=== PATIENT | female | born 1935 | race African-American/Black ===

== ENCOUNTER 2020-03-23 17:35 | Inpatient (IN) | payer MEDICARE, OTHER ==
[~2020-03-23] VITALS: Ht 165.1 cm; Wt 50.3 kg
--- NOTE | 2020-03-23 17:43 | NUR ---
pt ofe PANDEY from CUSTODIAL to ed bed 08 for noted fever and weakness x today. pt is hypoxic and febrile [employer]. hx esrd. last dialysis done yesterday per ems repord. gowned and placed on monitor. placed on O2@2l/min satting at low 90's. awaiting md cronin.
--- NOTE | 2020-03-23 18:20 | NUR ---
dr acharya at bedside for eval.
[2020-03-23] MEDS ORDERED: LISI40TA4 PO (18:27)
[2020-03-23] MEDS ORDERED: CLOP75TA15 PO (18:27)
[2020-03-23] MEDS ORDERED: ATOR20TA PO (18:27)
[2020-03-23] MEDS ORDERED: MELA3TAB41 PO (18:27)
[2020-03-23] MEDS ORDERED: SUCR1ORA15 PO (18:27)
[2020-03-23] MEDS ORDERED: CHOL400T11 PO (18:27)
[2020-03-23] MEDS ORDERED: HYDR-4077 PO (18:27)
[2020-03-23] MEDS ORDERED: ASPI-1169 PO (18:27)
[2020-03-23] MEDS ORDERED: ONDA4TAB11 PO (18:27)
[2020-03-23] MEDS ORDERED: AMLO10TA4 PO (18:27)
[2020-03-23] MEDS ORDERED: CALC667C6 PO (18:27)
[2020-03-23] MEDS ORDERED: FOLI0.8C PO (18:27)
[2020-03-23] MEDS ORDERED: VIT1TABL46 PO (18:27)
[2020-03-23] MEDS ORDERED: FAMO20TA80 PO (18:27)
[2020-03-23] MEDS ORDERED: MEMA5TAB42 PO (18:27)
[2020-03-23] MEDS ORDERED: LACT10SO43 PO (18:27)
[2020-03-23] MEDS ORDERED: DOCU-141 PO (18:27)
--- NOTE | 2020-03-23 18:27 | NUR ---
iv line started blood drawn and sent to lab.
[2020-03-23] MEDS ORDERED: KETOROLAC TROMETHAMINE INJ 30 MG/ML VIAL IV ONE (18:30)
[2020-03-23] MEDS ORDERED: ACETAMINOPHEN 650 MG/SUPP.RECT RC ONE ×2 (18:30→18:52)
[2020-03-23] MEDS ORDERED: KETOROLAC TROMETHAMINE 15 MG/ML VIAL ONE (18:52)
[2020-03-23 18:54] LABS: BILIRUBIN,URINE Negative (NEGATIVE); BLOOD, URINE Negative Ery/uL (NEGATIVE); COLOR,URINE YELLOW (YELLOW); LEUKOCYTE ESTERASE ,URINE Small (NEGATIVE); NITRITE, URINE Negative (NEGATIVE); PROTEIN,URINE 100 mg/dl (NEGATIVE); UGLUCOSE Negative (NEGATIVE); UROBILINOGEN,URINE 0.2 EU/dL (0.2)
--- NOTE | 2020-03-23 19:00 | NUR ---
covid swab done sent to lab
[2020-03-23 19:17] LABS: ALANINE AMINOTRANSFERASE 40 U/L (12-78); ALBUMIN 3.2 g/dL (3.4-5.0); ALKALINE PHOSPHATASE 57 U/L (46-116); ASPARTATE AMINOTRANSFERASE 61 U/L (15-37); B-TYPE NATRIURETIC PEPTIDE 19398 PG/ML (0-125); BILIRUBIN,TOTAL 0.4 mg/dL (0.2-1.0); CALCIUM, SERUM 9.9 mg/dL (8.5-10.1); CREATININE 6.4 mg/dL (0.6-1.3); GLUCOSE 115 mg/dL (74-106); TOTAL PROTEIN, SERUM 6.9 g/dL (6.4-8.2); UREA NITROGEN, BLOOD 39 mg/dL (7-18)
[2020-03-23 19:37] LABS: BASOPHILS % (AUTO) 0.4 % (0.0-2.0); HEMATOCRIT 28 % (33-45); HEMOGLOBIN 8.6 g/dL (11.5-14.8); LYMPHOCYTES # (AUTO) 0.3 /CMM (0.8-4.8); LYMPHOCYTES % (AUTO) 3.1 % (20.0-44.0); MEAN CORPUSCULAR HGB CONC 31 g/dl (31.0-36.0); MEAN CORPUSCULAR VOLUME 83 fL (82-100); MONOCYTES # (AUTO) 0.8 /CMM (0.1-1.30); MONOCYTES % (AUTO) 9.6 % (2.0-12.0); NEUTROPHILS # (AUTO) 7.2 /CMM (1.8-8.9); NEUTROPHILS % (AUTO) 86.9 % (43.0-81.0); PLATELET COUNT (AUTO) 112 /CMM (150-450); RED BLOOD CELL COUNT(AUTO) 3.38 MIL/uL (4.0-5.2); WHITE BLOOD COUNT (AUTO) 8.3 K/uL (4.3-11.0)
[2020-03-23 19:40] LABS: BACTERIA,URINE Few /HPF (None Seen); SQUAMOUS EPITHELIAL CELL,UR Few /HPF (None Seen)
[2020-03-23] MEDS ORDERED: VANCOMYCIN 1 GM VIAL ONE (19:56)
[2020-03-23] MEDS ORDERED: CEFEPIME 1 GM VIAL ONE (19:56)
[2020-03-23] MEDS ORDERED: CEFEPIME 1 GM in IV D5W 50 ML IV ONE (20:00)
[2020-03-23] MEDS ORDERED: VANCOMYCIN 1 GM in IV D5W 250 ML IV ONE (20:00)
--- NOTE | 2020-03-23 20:10 | NUR ---
COVID SWAB AND INFLUENZA SWAB COLLECTED AND SENT TO THE LAB.
[2020-03-23 20:19] LABS: CARBON DIOXIDE 29 mmol/L (21-32); CHLORIDE 101 mmol/L (98-107); POTASSIUM 3.6 mmol/L (3.5-5.1); SODIUM SERUM 140 mmol/L (136-145)
[2020-03-23 20:25] LABS: D-DIMER 4.55 mg/L(FEU (0.17-0.50)
[2020-03-23 20:45] LABS: CREATINE KINASE, TOTAL 635 U/L (26-192); FERRITIN 2864 ng/mL (8-388)
[2020-03-23 20:51] LABS: C-REACTIVE PROTEIN 11.2 mg/dL (0.0-0.9)
[2020-03-23] MEDS ORDERED: ACETAMINOPHEN 325 MG TABLET PO PRN (21:00)
[2020-03-23] MEDS ORDERED: ONDANSETRON HCL/PF 4 MG/2 ML VIAL IVP PRN (21:00)
[2020-03-23] MEDS ORDERED: ACETAMINOPHEN 650 MG/SUPP.RECT RC PRN (21:00)
--- NOTE | 2020-03-23 21:09 | NUR ---
ER SPOKE TO ANALI BLAS [facility] REGARDING PT ADMISSION.
--- NOTE | 2020-03-23 21:16 | NUR ---
LAB CALLED REGARDING NEGATIVE COVID RESULT.
--- NOTE | 2020-03-23 21:33 | NUR ---
TELE 208-2
[2020-03-23] MEDS ORDERED: Medication Not On Formulary EA (Melatonin 6 MG) PO SCH (22:00)
--- NOTE | 2020-03-23 22:05 | NUR ---
report given to hermila zelaya for justine.
[2020-03-23 22:10] VITALS: BP 148/68
--- NOTE | 2020-03-23 22:17 | NUR ---
PATIENT TAKEN UP TO ASSIGNED ROOM FOR HAMILTON.
[2020-03-23] MEDS ORDERED: ALBUTEROL FS 2.5 MG/3 ML VIAL.NEB NEB PRN (23:00)
--- NOTE | 2020-03-23 23:25 | NUR ---
MS2/RN RECEIVED PATIENT FROM [facility] AT AROUND 2210 BY MIRNA. PATIENT WAS AWAKE, PASSIVE AFFECT, NO SIGNS OF DISTRESS NOTED, PATIENT DOES NOT ANSWER TO QUESTIONS HENCE UNABLE TO OBTAIN ADMISSION INFORMATIONS. CALLED THE INSPECTOR METAL CAN IN THE CHART [phone], SPOKE TO TAMMI, WHO INTRODUCED HERSELF THE PROPELLANT ASSEMBLER OF FACILITY, [facility], WHICH SHE CONFIRMED THAT THE PATIENT LIVES THERE. PER TAMMI, THE PATIENT HAS ADVANCE DIRECTIVE, THE PATIENT IS DNR, SHE WILL FAX THE ADVANCE DIRECTIVE TOMORROW; TAMMI WAS NOT SURE IF THE HOME HEALTH RN GAVE FLU VACCINE ALREADY, SHE REQUESTED NOT TO GIVE FLU VACCINE TO THE PATIENT WELL THE PNA VACCINE. OBTAINED SOME RELEVANT ADMISSION INFORMATIONS WELL. WILL MONITOR PATIENT'S TEMP AND SAFETY.
[2020-03-24] VITALS: BP 148/68
[2020-03-24] MEDS: SUCRALFATE 1 G/10 ML UDC PO SCH ×6 (00:06→21:13)
--- NOTE | 2020-03-24 00:17 | NUR ---
MS2/RN TEMP 101.7, TYLENOL SUPP WAS GIVEN ORDERED, COOLING MEASURES STARTED, WILL MONITOR.
--- NOTE | 2020-03-24 03:21 | NUR ---
MS2/RN AT 0100, TEMP 102, SPONGE BATH WITH DONE. RECHECKED TEMP, 101. WILL CONTINUE WITH COOLING MEASURES. WILL CONTINUE TO MONITOR.
[2020-03-24 04:00] VITALS: BP 149/71
--- NOTE | 2020-03-24 06:21 | NUR ---
MS2/RN TEMP AT 0500 98.0, INTERVENTION EFFECTIVE. PATIENT IS STILL SLEEPING AT THIS TIME, APPEAR COMFORTABLE, NO SIGNS OF DISTRESS NOTED, CALL LIGHT IN REACH. ALL NEEDS ATTENDED AT THIS TIME, WILL CONTINUE TO MONITOR.
[2020-03-24 06:38] LABS: BASOPHILS # (AUTO) 0.1 /CMM (0.0-0.2); BASOPHILS % (AUTO) 0.6 % (0.0-2.0); EOSINOPHILS % (AUTO) 0.3 % (0.0-6.0); HEMATOCRIT 28 % (33-45); HEMOGLOBIN 8.7 g/dL (11.5-14.8); LYMPHOCYTES # (AUTO) 0.6 /CMM (0.8-4.8); LYMPHOCYTES % (AUTO) 5.3 % (20.0-44.0); MEAN CORPUSCULAR HGB CONC 31 g/dl (31.0-36.0); MEAN CORPUSCULAR VOLUME 82 fL (82-100); MONOCYTES # (AUTO) 1.6 /CMM (0.1-1.30); MONOCYTES % (AUTO) 13.7 % (2.0-12.0); NEUTROPHILS # (AUTO) 9.4 /CMM (1.8-8.9); NEUTROPHILS % (AUTO) 80.1 % (43.0-81.0); PLATELET COUNT (AUTO) 102 /CMM (150-450); RED BLOOD CELL COUNT(AUTO) 3.45 MIL/uL (4.0-5.2); WHITE BLOOD COUNT (AUTO) 11.8 K/uL (4.3-11.0)
[2020-03-24 07:04] LABS: ALANINE AMINOTRANSFERASE 44 U/L (12-78); ALBUMIN 2.7 g/dL (3.4-5.0); ALKALINE PHOSPHATASE 60 U/L (46-116); ASPARTATE AMINOTRANSFERASE 55 U/L (15-37); BILIRUBIN,TOTAL 0.4 mg/dL (0.2-1.0); CALCIUM, SERUM 9.5 mg/dL (8.5-10.1); CARBON DIOXIDE 27 mmol/L (21-32); CHLORIDE 102 mmol/L (98-107); CREATININE 6.7 mg/dL (0.6-1.3); GLUCOSE 115 mg/dL (74-106); POTASSIUM 3.8 mmol/L (3.5-5.1); SODIUM SERUM 138 mmol/L (136-145); TOTAL PROTEIN, SERUM 6.2 g/dL (6.4-8.2); UREA NITROGEN, BLOOD 44 mg/dL (7-18)
[2020-03-24 07:52] LABS: FERRITIN 3596 ng/mL (8-388)
[2020-03-24 08:00] VITALS: BP 134/69
[2020-03-24] MEDS ORDERED: VANCOMYCIN 500 MG in IV D5W 100 ML IV PRN (08:00)
--- NOTE | 2020-03-24 08:01 | NUR ---
ALARM ADJUSTER OPEN NOTES PATIENT CURRENTLY SLEEPING IN BED WITH NO SIGNS OF DISTRESS ON 2L ON NASAL CANNULA. CURRENTLY NO SIGNS OF PAIN. TELE MONITOR SR. IV L AC# 20G, HD R ARM FISTULA. SAFETY MEASURES ARE APPLIED. BED IS IN LOWEST LOCKED POSITION WITH SIDE RAILS UP X 2 FOR SAFETY. CALL LIGHT IS WITHIN REACH. WILL CONTINUE TO MONITOR.
[2020-03-24] MEDS: ASPIRIN 81 MG TAB.CHEW PO SCH (08:40)
[2020-03-24] MEDS: DOCUSATE SODIUM 100 MG CAPSULE PO SCH ×2 (08:40→17:38)
[2020-03-24] MEDS: CHOLECALCIFEROL (VITAMIN D 3) 400 UNIT TABLET PO SCH (08:40)
[2020-03-24] MEDS: CALCIUM ACETATE 667 MG TABLET PO SCH ×3 (08:40→17:39)
[2020-03-24] MEDS: FAMOTIDINE (20 MG) 20 MG TABLET PO SCH (08:40)
[2020-03-24] MEDS: FOLIC ACID 1 MG TABLET PO SCH (08:40)
[2020-03-24] MEDS: VIT B CMPLX 3/FA/VIT C/BIOTIN 1 TAB TABLET PO SCH (08:40)
[2020-03-24] MEDS: LACTULOSE 10 G/15 ML UDC (PYXIS) PO SCH ×2 (08:40→17:39)
[2020-03-24] MEDS: MEMANTINE HCL 5 MG TABLET PO SCH (08:41)
[2020-03-24] MEDS: CLOPIDOGREL BISULFATE 75 MG TABLET PO SCH (08:41)
[2020-03-24] MEDS: LISINOPRIL (20MG) 20 MG TABLET PO SCH ×2 (09:00→21:13)
[2020-03-24] MEDS: hydrALAZINE HCL 50 MG TABLET PO SCH ×3 (09:00→17:39)
[2020-03-24] MEDS: AMLODIPINE BESYLATE 10 MG TABLET PO SCH (09:00)
--- NOTE | 2020-03-24 09:00 | NUR ---
HELD BP MEDS D/T HEMODIALYSES TODAY BP 134/69 HR 68. WILL CONTINUE TO MONITOR.
[2020-03-24 12:00] VITALS: BP 159/70
--- NOTE | 2020-03-24 13:00 | NUR ---
HELD BP MED D/T HEMODIALYSES BP 128/58 HR 69. WILL CONTINUE TO MONITOR.
--- NOTE | 2020-03-24 15:00 | NUR ---
PATIENT PCR NEGATIVE. GAVE REPORT TO NEDA CHOI FROM [facility] FOR CONTINUATION OF CARE
--- NOTE | 2020-03-24 15:10 | NUR ---
TRANSFERRED PATIENT TO [facility] NEDA CHOI RECEIVED PATIENT.
--- NOTE | 2020-03-24 15:20 | NUR ---
RN NOTES RECEIVED PT FROM MS2. A/O X1. SR ON TELE MONITOR. ON O2 2L VIA NC SATURATING @98%. NO SOB OR ANY RESPIRATORY DISTRESS NOTED AT THIS TIME. R ARM FISTULA, NO BP ON RIGHT ARM. L AC #20 INTACT, PATENT AND FLUSHED. VS TEMP: 98.6, HR: 65, RR: 18, BP: 144/62. SAFETY MEASURES IMPLEMENTED. CALL LIGHT WITHIN REACH. BED LOCKED AND AT LOWEST POSITION WITH SIDE RAILS UP X3. BED ALARM ON. NO PAIN REPORTED AT THIS TIME. WILL CONTINUE TO MONITOR
--- NOTE | 2020-03-24 17:30 | NUR ---
RN NOTES BEDSIDE SWALLOW EVAL DONE. PT DOES NOT FOLLOW COMMAND. PT NOT ABLE TO SWALLOW COMPLETELY. POCKETS FOODS ON THE SIDE OF THE MOUTH. HIGH RISK FOR ASPIRATION. MD AWARE. ORDERED SWALLOW EVAL. WILL CONTINUE TO MONITOR
--- NOTE | 2020-03-24 18:54 | NUR ---
RN CLOSING NOTES PT RESTING IN BED. A/O X1. VERBALLY RESPONSIVE. SR ON TELE MONITOR. ON O2 2L VIA NC SATURATING @98%. NO SOB OR ANY RESPIRATORY DISTRESS NOTED AT THIS TIME. R ARM FISTULA, NO BP ON RIGHT ARM. L AC #20 INTACT, PATENT AND FLUSHED. SAFETY MEASURES IMPLEMENTED. CALL LIGHT WITHIN REACH. BED LOCKED AND AT LOWEST POSITION WITH SIDE RAILS UP X3. BED ALARM ON. NO PAIN REPORTED AT THIS TIME. WILL ENDORSE TO NIGHT NURSE FOR HAMILTON
--- NOTE | 2020-03-24 19:36 | NUR ---
DRY PAN FEEDER NOTES RECEIVED ON BED ON HIGH FOWLERS POSITION,SLEEPING,AROUSABLE TO VERBAL STIMULI,O2 IN USED AT 2L/NC TO KEEP O2 SAT ABOVE 90%.WITH LEFT AC SALINE LOCK INTACT AND PATENT,RIGHT ARM FISTULA FOR HD ACCESS.FALL RISK,BED ALARM,BED ON LOWEST POSITION AND LOCKED.CALL LIGHT IN REACH,NEEDS ANTICIPATED.
[2020-03-24 20:00] VITALS: BP 134/96
--- NOTE | 2020-03-24 20:20 | NUR ---
MS RN NOTES REPORTED BY PLATING OPERATOR NAME TEETEE,BLOOD CULTURE,GRAM POSITIVE COCCI IN CLUSTER,PATIENT ON IV VANCOMYCIN.WILL NOTIFY HOSPITALIST.
[2020-03-24] MEDS: ATORVASTATIN 10 MG TABLET PO SCH (21:13)
--- NOTE | 2020-03-24 21:59 | NUR ---
MS RN NOTES DUE PO MEDS ADMINISTERED WITH [facility],TAKEN WELL.NEGATIVE FOR ASPIRATION.
[2020-03-25] VITALS: BP 155/79
[2020-03-25 04:00] VITALS: BP 145/70
--- NOTE | 2020-03-25 06:16 | NUR ---
INTEGRATION LEAD NOTES SR-62 ON TELE MONITOR,NO EPISODE OF SOB NOTED,POSSIBLE DIALYSIS TODAY.IN N ACUTE DISTRESS.WILL ENDORSE TO DAY NURSE FOR HAMILTON.
[2020-03-25 06:46] LABS: BASOPHILS # (AUTO) 0.1 /CMM (0.0-0.2); BASOPHILS % (AUTO) 0.6 % (0.0-2.0); EOSINOPHILS % (AUTO) 1.4 % (0.0-6.0); HEMATOCRIT 25 % (33-45); HEMOGLOBIN 7.9 g/dL (11.5-14.8); LYMPHOCYTES # (AUTO) 1.1 /CMM (0.8-4.8); LYMPHOCYTES % (AUTO) 9.3 % (20.0-44.0); MEAN CORPUSCULAR HGB CONC 31 g/dl (31.0-36.0); MEAN CORPUSCULAR VOLUME 80 fL (82-100); MONOCYTES # (AUTO) 1.1 /CMM (0.1-1.30); MONOCYTES % (AUTO) 9.1 % (2.0-12.0); NEUTROPHILS # (AUTO) 9.4 /CMM (1.8-8.9); NEUTROPHILS % (AUTO) 79.6 % (43.0-81.0); PLATELET COUNT (AUTO) 105 /CMM (150-450); RED BLOOD CELL COUNT(AUTO) 3.18 MIL/uL (4.0-5.2); WHITE BLOOD COUNT (AUTO) 11.8 K/uL (4.3-11.0)
[2020-03-25 07:16] LABS: CALCIUM, SERUM 9.7 mg/dL (8.5-10.1); CARBON DIOXIDE 29 mmol/L (21-32); CHLORIDE 102 mmol/L (98-107); GLUCOSE 105 mg/dL (74-106); MAGNESIUM 2.7 mg/dL (1.8-2.4); PHOSPHORUS 1.8 mg/dL (2.5-4.9); POTASSIUM 3.9 mmol/L (3.5-5.1); SODIUM SERUM 141 mmol/L (136-145); UREA NITROGEN, BLOOD 64 mg/dL (7-18)
[2020-03-25 07:24] LABS: CREATININE 8.2 mg/dL (0.6-1.3)
--- NOTE | 2020-03-25 07:30 | NUR ---
RN NURSING NOTE RECEIVED PATIENT IN BED RESTING. NO S/S OF DISTRESS NOTED. CURRENTLY ON 2L OXYGEN THERAPY VIA NASAL CANNULA. OXYGEN SATURATION 98%. SINUS RHYTHM. A/OX1. WHEELCHAIR BOUND. SEE NURSING FLOWSHEET FOR SKIN ISSUES. CURRENTLY HAS A R ARM FISTULA AND A L AC 20G. INTACT AND PATENT. NO S/S OF INFECTION AT THIS TIME. PATIENT IS A FALL RISK, ALL PRECAUTIONS IN PLACE. BED LOCKED IN LOWEST POSITION, SIDE RAILS UP X2, CALL LIGHT WITHIN REACH. WILL CONTINUE TO MONITOR.
[2020-03-25 07:50] LABS: CREATINE KINASE, TOTAL 441 U/L (26-192); FERRITIN 3705 ng/mL (8-388)
[2020-03-25] MEDS: SUCRALFATE 1 G/10 ML UDC PO SCH ×4 (07:54→21:14)
[2020-03-25] MEDS: CALCIUM ACETATE 667 MG TABLET PO SCH ×3 (07:54→17:17)
[2020-03-25 08:00] VITALS: BP 151/63
--- NOTE | 2020-03-25 08:10 | NUR ---
RN NOTES CRITICAL LAB RESULT CREATININE 8.2, RELAYED TO DR. BAKER
--- NOTE | 2020-03-25 09:30 | NUR ---
RN NOTE DUE MEDS GIVEN
[2020-03-25] MEDS: VIT B CMPLX 3/FA/VIT C/BIOTIN 1 TAB TABLET PO SCH (09:36)
[2020-03-25] MEDS: FOLIC ACID 1 MG TABLET PO SCH (09:37)
[2020-03-25] MEDS: hydrALAZINE HCL 50 MG TABLET PO SCH ×3 (09:37→17:16)
[2020-03-25] MEDS: MEMANTINE HCL 5 MG TABLET PO SCH (09:37)
[2020-03-25] MEDS: LACTULOSE 10 G/15 ML UDC (PYXIS) PO SCH ×2 (09:38→17:14)
[2020-03-25] MEDS: FAMOTIDINE (20 MG) 20 MG TABLET PO SCH (09:38)
[2020-03-25] MEDS: DOCUSATE SODIUM 100 MG CAPSULE PO SCH ×2 (09:38→17:15)
[2020-03-25] MEDS: ASPIRIN 81 MG TAB.CHEW PO SCH (09:38)
[2020-03-25] MEDS: AMLODIPINE BESYLATE 10 MG TABLET PO SCH (09:38)
[2020-03-25] MEDS: CHOLECALCIFEROL (VITAMIN D 3) 400 UNIT TABLET PO SCH (09:38)
[2020-03-25] MEDS: CLOPIDOGREL BISULFATE 75 MG TABLET PO SCH (09:39)
[2020-03-25] MEDS: LISINOPRIL (20MG) 20 MG TABLET PO SCH ×2 (09:42→21:15)
--- NOTE | 2020-03-25 14:34 | NUR ---
RN NOTES HD NURSE SHAYNA AT BEDSIDE FOR DIALYSIS.
[2020-03-25 16:00] VITALS: BP 127/61
[2020-03-25] MEDS ORDERED: VANCOMYCIN 1 GM in IV D5W 250 ML IV ONE (18:00)
--- NOTE | 2020-03-25 18:21 | NUR ---
RN CLOSING NOTES PT RESTING IN BED. A/O X1. VERBALLY RESPONSIVE. PATIENT ON 02 THERAPY VIA NASAL CANNULA. NO SOB OR S/S OF RESPIRATORY DISTRESS AT THIS TIME. L HAND IV INSERTED, INTACT AND PATENT. NO S/S OF INFECTION AT THIS TIME. SAFETY MEASURES IMPLEMENTED. CALL LIGHT WITHIN REACH. BED LOCKED AND AT LOWEST POSITION WITH SIDE RAILS UP X2. BED ALARM ON. NO PAIN REPORTED AT THIS TIME. WILL ENDORSE TO NIGHT NURSE FOR HAMILTON
--- NOTE | 2020-03-25 19:30 | NUR ---
MS/RN OPENING NOTES RECEIVED PATIENT IS BED RESTING. PATIENT IS ALERT AND ORIENTED X 1-2. PATIENT IS TOLERATING 2L O2 ON NC WELL. NO SIGNS OF SOB OR RESPIRATORY DISTRESS NOTED. BREATHING IS EVEN AND UNLABORED. PATIENT HAS IV ACCESS ON LEFT HAND IV INTACT. NO DISTRESS NOTED AT THIS TIME. SAFETY MEASURES ARE IN PLACE, BED IS LOCKED AND PLACED IN THE LOW POSITION, SIDE RAILS UP X 2. CALL LIGHT IS WITHIN REACH. WILL MONITOR THROUGH OUT SHIFT.
[2020-03-25 20:00] VITALS: BP 136/72
--- NOTE | 2020-03-25 20:15 | NUR ---
MS/RN NOTES TAMMI ADMINISTER FROM [facility] CALLED AND SAID IF PATIENT COVID TEST NEGATIVE, OKAY FOR PATIENT TO RETURN TO FACILITY. PATIENT NEEDS COPY OF COVID RESULTS UPON D/C.
[2020-03-25] MEDS: ATORVASTATIN 10 MG TABLET PO SCH (21:15)
--- NOTE | 2020-03-26 06:25 | NUR ---
MS/RN CLOSING NOTES PATIENT IS BED SLEEPING. PATIENT IS ALERT AND ORIENTED X 1. PATIENT IS TOLERATING 2L O2 ON NC WELL. NO SIGNS OF SOB OR RESPIRATORY DISTRESS NOTED. BREATHING IS EVEN AND UNLABORED. PATIENT HAS IV ACCESS ON LEFT HAND IV INTACT, NO REDNESS NOTED. PATIENT IN NO SIGNS OF DISTRESS. ALL NEEDS HAVE BEEN MET DURING SHIFT. SAFETY MEASURES ARE IN PLACE, BED IS LOCKED AND PLACED IN THE LOW POSITION, SIDE RAILS UP X 2. CALL LIGHT IS WITHIN REACH. ASPIRATION PRECAUTIONS IN PLACE. WILL ENDORSE CARE TO DAY SHIFT.
[2020-03-26 06:29] LABS: BASOPHILS # (AUTO) 0.1 /CMM (0.0-0.2); BASOPHILS % (AUTO) 0.5 % (0.0-2.0); EOSINOPHILS % (AUTO) 2.5 % (0.0-6.0); HEMATOCRIT 28 % (33-45); HEMOGLOBIN 8.8 g/dL (11.5-14.8); LYMPHOCYTES # (AUTO) 1.1 /CMM (0.8-4.8); LYMPHOCYTES % (AUTO) 10.4 % (20.0-44.0); MEAN CORPUSCULAR HGB CONC 32 g/dl (31.0-36.0); MEAN CORPUSCULAR VOLUME 80 fL (82-100); MONOCYTES # (AUTO) 0.9 /CMM (0.1-1.30); MONOCYTES % (AUTO) 8.1 % (2.0-12.0); NEUTROPHILS # (AUTO) 8.4 /CMM (1.8-8.9); NEUTROPHILS % (AUTO) 78.5 % (43.0-81.0); PLATELET COUNT (AUTO) 131 /CMM (150-450); RED BLOOD CELL COUNT(AUTO) 3.52 MIL/uL (4.0-5.2); WHITE BLOOD COUNT (AUTO) 10.7 K/uL (4.3-11.0)
[2020-03-26 06:55] LABS: CALCIUM, SERUM 9.6 mg/dL (8.5-10.1); CARBON DIOXIDE 29 mmol/L (21-32); CHLORIDE 100 mmol/L (98-107); CREATININE 6.1 mg/dL (0.6-1.3); GLUCOSE 102 mg/dL (74-106); POTASSIUM 3.6 mmol/L (3.5-5.1); SODIUM SERUM 138 mmol/L (136-145); UREA NITROGEN, BLOOD 39 mg/dL (7-18)
--- NOTE | 2020-03-26 07:30 | NUR ---
RN OPENING NOTE RECEIVED PATIENT IN BED RESTING. NO S/S OF DISTRESS NOTED. CURRENTLY ON OXYGEN THERAPY VIA NASAL CANNULA. OXYGEN SATURATION 97%. CURRENTLY HAS A R ARM FISTULA AND A LEFT HAND 22G IV. INTACT AND PATENT. NO S/S OF INFECTION AT THIS TIME. BED LOCKED IN LOWEST PSOTION, ALL SAFETY MEASURES IN PLACE PER HOSPITAL PROTOCOL, SIDE RAILS UP X2, CALL LIGHT WITHIN REACH. WILL CONTINUE TO MONITOR.
[2020-03-26] MEDS: MEMANTINE HCL 5 MG TABLET PO SCH (08:26)
[2020-03-26] MEDS: FOLIC ACID 1 MG TABLET PO SCH (08:26)
[2020-03-26] MEDS: CALCIUM ACETATE 667 MG TABLET PO SCH ×3 (08:26→17:15)
[2020-03-26] MEDS: FAMOTIDINE (20 MG) 20 MG TABLET PO SCH (08:26)
[2020-03-26] MEDS: CLOPIDOGREL BISULFATE 75 MG TABLET PO SCH (08:27)
[2020-03-26] MEDS: AMLODIPINE BESYLATE 10 MG TABLET PO SCH (08:27)
[2020-03-26] MEDS: CHOLECALCIFEROL (VITAMIN D 3) 400 UNIT TABLET PO SCH (08:27)
[2020-03-26] MEDS: LISINOPRIL (20MG) 20 MG TABLET PO SCH (08:27)
[2020-03-26] MEDS: SUCRALFATE 1 G/10 ML UDC PO SCH ×3 (08:28→17:15)
[2020-03-26] MEDS: LACTULOSE 10 G/15 ML UDC (PYXIS) PO SCH ×2 (08:28→17:16)
[2020-03-26] MEDS: DOCUSATE SODIUM 100 MG CAPSULE PO SCH ×2 (08:28→17:15)
[2020-03-26] MEDS: VIT B CMPLX 3/FA/VIT C/BIOTIN 1 TAB TABLET PO SCH (08:28)
[2020-03-26] MEDS: hydrALAZINE HCL 50 MG TABLET PO SCH ×3 (08:28→17:15)
[2020-03-26] MEDS: ASPIRIN 81 MG TAB.CHEW PO SCH (08:28)
--- NOTE | 2020-03-26 15:36 | NUR ---
RN NOTES PATIENT SEEN BY JAMISON PRICE INFORMAL WAITER/WAITRESS FOR DR. DIAZ, INFORMED HER THAT PATIENT IS FOR DISCHARGED TODAY, BUT PER HER, THEY WANT BLOOD CULTURE RESULTS FIRST AND TO CONTINUE WITH VANCOMYCIN FOR 14 DAYS VIA HD. TO FOLLOW UP WITH DR. DIAZ. DR. BAKER NOTIFIED THAT PT IS FOR GI SERIES STILL WITH GASTROGRAFFIN. NOTIFIED RADIOLOGY THAT PT IS FOR DISCHARGE TODAY. PER RADIOLOGY, THEY WILL CALL BACK. PER DR. BAKER, OK FOR DC AFTER GI SERIES.
[2020-03-26 16:00] VITALS: BP 122/63
[2020-03-26] MEDS ORDERED: DIATR MEGLU/DIATRIZOATE SODIUM 120 ML BOTTLE (GASTROGRAPHIN) ONE (16:06)
[2020-03-26 17:15] VITALS: BP 181/75
--- NOTE | 2020-03-26 19:00 | NUR ---
DISCHARGE NOTE [facility] ARRIVED TO TRANSFER PATIENT. GAVE REPORT TO BRYCE HINTON. PATIENT STABLE AT TIME OF DISCHARGE.
== END 2020-03-26 19:00 | disposition home or self-care (01) | DRG 871 ==
LOC: ER 17:49 → TELE-TD 21:50 → TELE2 22:21 → TELE1 03-24 15:20 → MEDSG1 03-25 08:35
PROVIDERS: ADMIT Nurse Practitioner Acute Care
PROC: 5A1D70Z Performance of Urinary Filtration, Intermittent, Less than 6 Hours Per Day (ICD-10-PCS; principal; 2020-03-23)
DX: A41.1 Sepsis due to other specified staphylococcus (principal); J96.01 Acute respiratory failure with hypoxia; G93.41 Metabolic encephalopathy; N18.6 End stage renal disease; N39.0 Urinary tract infection, site not specified; J90 Pleural effusion, not elsewhere classified; I13.2 Hypertensive heart and chronic kidney disease with heart failure and with stage 5 chronic kidney disease, or end stage renal disease; I31.3 Pericardial effusion (noninflammatory); D63.8 Anemia in other chronic diseases classified elsewhere; Z99.2 Dependence on renal dialysis; Z86.73 Personal history of transient ischemic attack (TIA), and cerebral infarction without residual deficits; F03.90 Unspecified dementia, unspecified severity, without behavioral disturbance, psychotic disturbance, mood disturbance, and anxiety; D69.6 Thrombocytopenia, unspecified; Z79.82 Long term (current) use of aspirin; E78.5 Hyperlipidemia, unspecified; Z88.0 Allergy status to penicillin; I50.9 Heart failure, unspecified; N25.0 Renal osteodystrophy
CPT/HCPCS: 36415; 71045-TC; 74246-TC; 80048-TC; 80053-TC; 80202-TC; 81001; 82550-TC; 82553; 82728-TC; 83605-TC; 83615-TC; 83735-TC; 83880; 84100-TC; 84484-TC; 85025-TC; 85378-TC; 85730-TC; 86140-TC; 87040-TC; 87081-TC; 87086-TC; 90935-TC; 92526; 92611-TC; 93307-TC; C9803; G0378; J0692; J1885; J3370; J7060; Q9963; U0003